=== PATIENT | female | born 1935 | race Caucasian/White ===

== ENCOUNTER → 2018-11-09 | Outpatient (CLI) | payer MEDICARE ==
--- NOTE | 2018-11-09 13:25 | US ---
EXAMINATION TYPE: US venous doppler duplex LE BI DATE OF EXAM: 11/09/2018 1:14 PM COMPARISON: NONE CLINICAL HISTORY: M79.662 Pain left leg, M79.661 Pain right leg. SIDE PERFORMED: Bilateral TECHNIQUE: The lower extremity deep venous system is examined utilizing real time linear array sonog janel with graded compression, doppler sonography and color-flow sonography. VESSELS IMAGED: External Iliac Vein (EIV) Common Femoral Vein Deep Femoral Vein Greater Saphenous Vein * Femoral Vein Popliteal Vein Small Saphenous Vein * Proximal Calf Veins (* superficial vessels) Grayscale, color doppler, spectral doppler imaging performed of the deep veins of the lower extremiti es. There is normal flow, compressibility, vascular waveforms. Right Leg: Negative for DVT Left Leg: Negative for DVT There appears to be two separate fluid collections left pop fossa, the first is adjacent to the pop v essels and measures 2.9 x 0.9 x 1.1, and the second is more anterior and measures 6.5 x 1.7 x 2.8 cm . IMPRESSION: 1. No sonographic evidence of deep venous thrombosis within either lower extremity. 2. 2 fluid collections emanating from the popliteal fossa on the left likely representing popliteal c ysts.
--- NOTE | 2018-11-09 14:18 | XR ---
EXAMINATION TYPE: XR bone survey complete DATE OF EXAM: 11/09/2018 COMPARISON: NONE HISTORY: Lower extremity pain with no known injury. Increased calcium levels Bony calvarium : 2 views of the bony calvarium demonstrate innumerable subcentimeter lucent lesions t hroughout the entirety of the calvarium. There also appears to be widening and sclerosis of the diplo ic space on the lateral calvarial view. Spine: Two views of the cervical, thoracic and lumbar spines are submitted. The spine demonstrates s evere multilevel degenerative disc disease throughout the thoracic and lumbar spine. There is a grade 2 anterolisthesis of L5 on S1. There appears to be osseous demineralization of the spine particularl y of the lower spine. There is also grade 1 anterolisthesis of C6 on C7. PELVIS: Single view of the pelvis demonstrates. No acute fracture or suspicious lytic lesion however there is osseous demineralization of the superior sacrum and retained fecal debris overlying the edgar ac bones and distal sacrum limiting evaluation. UPPER EXTREMITIES: Two views of the upper extremities. Chronic rotator cuff injury is seen as there i s remodeling of the acromion, right greater than left. No acute fracture or suspicious osseous lesion is seen in the upper extremities. LOWER EXTREMITIES: 2 views of the lower extremities. Mild bilateral femoral acetabular arthropathy a nd partially visualized extensive degenerative changes of the knee joints are appreciated. No suspici ous osseous lesion. The single view of the chest demonstrates granulomatous changes at the randy with no focal consolidati on and an enlarged cardiomediastinal silhouette. IMPRESSION: 1. Innumerable lytic lesions within the calvarium with the appearance of the diploic space widening a nd sclerosis. 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 2. Evidence of prior rotator cuff injury with remodeling mineralization of the acromion bilaterally, right greater than left. 3. Partially visualized degenerative changes of the knees appears advanced.
== END | disposition home or self-care (01) ==
LOC: RADUSWWP 09:48
PROVIDERS: ATTEND Internal Medicine Hematology & Oncology
DX: M79.662 Pain in left lower leg (principal); C90.00 Multiple myeloma not having achieved remission; D86.9 Sarcoidosis, unspecified; M88.9 Osteitis deformans of unspecified bone; M17.0 Bilateral primary osteoarthritis of knee; D60.9 Acquired pure red cell aplasia, unspecified; E03.9 Hypothyroidism, unspecified; I10 Essential (primary) hypertension
CPT/HCPCS: 77075; 83883; 86335; 93970

== ENCOUNTER 2018-12-16 08:48 | Emergency (ER) | payer MEDICAID, MEDICARE ==
[2018-12-16 08:51] VITALS: RESP 18
--- NOTE | 2018-12-16 10:33 | XR ---
EXAMINATION TYPE: XR knee complete bilateral , 6 VIEWS DATE OF EXAM ORDERED: 12/16/2018 HISTORY: Pain. COMPARISON: None. FINDINGS: No fracture, dislocation or joint effusion is seen. There is severe tricompartment disease in both knees. There are remodeling change in all 3 compartments. There is aggressive osteopenia (pr esent on the right which may be secondary to disuse. IMPRESSION: 1. NO ACUTE OSSEOUS LESION. 2. SEVERE OSTEOARTHRITIS.
[2018-12-16 10:58] VITALS: BP 162/86; PULSE 87; TEMP 98.3
--- NOTE | 2018-12-16 11:07 | ED ---
Fall HPI - General Chief Complaint: Fall Stated Complaint: Fall Time Seen by Provider: 12/16/18 09:11 Source: patient, EMS Mode of arrival: EMS - History of Present Illness Initial Comments: Patient is a 83-year-old female with history of multiple myeloma presenting to the emergency department after a fall. Patient states that she uses a cane and attempted to walk to the bathroom this morning when she slipped and fell. She can't fully recall the mechanism of the fall. Her came to help her get her off the ground. Patient reports tenderness on bilateral knees. Patient denies any muscle weakness, tingling, numbness. Patient denies any headaches, abdominal pain, or any other extremity pain. Patient denies any chest pain or shortness of breath. - Related Data Home Medications Medication Instructions Recorded Confirmed Levothyroxine Sodium [Synthroid] 100 mcg PO DAILY@0700 12/16/18 12/16/18 Metoprolol Tartrate [Lopressor] 25 mg PO BID@1000,1700 12/16/18 12/16/18 Allergies Allergy/AdvReac Type Severity Reaction Status Date / Time acetaminophen [From Tylenol] Allergy Verified 12/16/18 09:34 benazepril [From Lotensin] Allergy Verified 12/16/18 09:34 hydrochlorothiazide Allergy Verified 12/16/18 09:34 [From Dyazide] magnesium Allergy Verified 12/16/18 09:34 Penicillins Allergy Verified 12/16/18 09:34 triamterene [From Dyazide] Allergy Verified 12/16/18 09:34 Review of Systems ROS Statement: Those systems with pertinent positive or pertinent negative responses have been documented in the HPI. ROS Other: All systems not noted in ROS Statement are negative. Past Medical History Past Medical History: Cancer, Hypertension, Thyroid Disorder History of Any Multi-Drug Resistant Organisms: None Reported Past Surgical History: Appendectomy Past Psychological History: No Psychological Hx Reported Smoking Status: Former smoker Past Alcohol Use History: None Reported Past Drug Use History: None Reported General Exam Limitations: no limitations General appearance: alert, in no apparent distress Head exam: Present: atraumatic, normocephalic, normal inspection Eye exam: Present: normal appearance, PERRL, EOMI. Absent: scleral icterus, conjunctival injection, nystagmus Pupils: Present: normal accommodation ENT exam: Present: normal exam Neck exam: Present: normal inspection, full ROM. Absent: tenderness Respiratory exam: Present: normal lung sounds bilaterally Cardiovascular Exam: Present: systolic murmur Extremities exam: Present: tenderness (Bilateral knee tenderness.), normal capillary refill, joint swelling (Mild joint swelling.), other (+2 dorsalis pedis bilaterally.). Absent: full ROM (Decreased range of motion bilaterally especially with knee flexion.), pedal edema, calf tenderness ( The lateral.) Back exam: Present: normal inspection Neurological exam: Present: alert, oriented X3 Psychiatric exam: Present: normal affect, normal mood Course Vital Signs 12/16/18 08:49 Temperature 98.5 F Pulse Rate 95 Respiratory 18 Rate Blood Pressure 183/70 O2 Sat by Pulse 100 Oximetry Medical Decision Making - Medical Decision Making Patient is a 83-year-old female presents to the emergency department after a fall. X-ray of bilateral knees was obtained and was negative for fractures. X- ray was suggestive of osteopenia and arthritic changes. Patient advised to follow-up with primary care. Patient is to return to emergency department if symptoms worsen. Patient advised to take acetaminophen for pain control. Case discussed with physician. Disposition Clinical Impression: Fall Disposition: HOME SELF-CARE Condition: Stable Instructions (If sedation given, give patient instructions): Fall Prevention for Older Adults (ED) Additional Instructions: Please follow up primary care. Please return to emergency department if symptoms worsen. Take acetaminophen for pain control. Is patient prescribed a controlled substance at d/c from ED?: No Referrals: Danna Corea DO [Primary Care Provider] - 1-2 days Time of Disposition: 11:08
== END 2018-12-16 11:19 | disposition home or self-care (01) ==
LOC: EC 08:48
DX: M25.462 Effusion, left knee (principal); M25.461 Effusion, right knee; I10 Essential (primary) hypertension; E07.9 Disorder of thyroid, unspecified; Z85.79 Personal history of other malignant neoplasms of lymphoid, hematopoietic and related tissues; Z87.891 Personal history of nicotine dependence; Z79.890 Hormone replacement therapy; Z79.899 Other long term (current) drug therapy; Z88.6 Allergy status to analgesic agent; Z88.8 Allergy status to other drugs, medicaments and biological substances; Z88.0 Allergy status to penicillin; W01.0XXA Fall on same level from slipping, tripping and stumbling without subsequent striking against object, initial encounter; Y93.89 Activity, other specified; Y92.009 Unspecified place in unspecified non-institutional (private) residence as the place of occurrence of the external cause
CPT/HCPCS: 99283

== ENCOUNTER 2019-03-23 08:32 | Inpatient (IN) | payer MEDICAID ==
[2019-03-23] MEDS ORDERED: HYDROcodone/APAP 5-325MG 1 EACH TAB PO PRN ×2 (09:19→16:37)
--- NOTE | 2019-03-23 09:27 | ED ---
General Adult HPI - General Chief complaint: Fall Stated complaint: FALL Time Seen by Provider: 03/23/19 08:34 Source: EMS, RN notes reviewed, old records reviewed Mode of arrival: EMS Limitations: altered mental status, physical limitation - History of Present Illness Initial comments: This is an 83-year-old female the ER for evaluation. Patient is unable to give accurate history currently. Patient refusing to cooperate and interview. Patient's presenting here with hospice care as well as at home patient unable to cooperate and interview. Patient's hospice care nurse is here providing helpful history. Patient's becoming increasingly psychotic inappropriate following inability take care of herself not eating not taking medications. Did not notice any significant injury or fever MD Complaint: Psychosis and inability to attend basic needs -: week(s) Improves with: none Worsens with: none Associated Symptoms: confusion, weakness Treatments Prior to Arrival: none - Related Data Home Medications Medication Instructions Recorded Confirmed Levothyroxine Sodium [Synthroid] 100 mcg PO DAILY 12/16/18 03/23/19 Metoprolol Tartrate [Lopressor] 25 mg PO BID 12/16/18 03/23/19 Hydrocodone/Acetaminophen [[place] 1 tab PO Q4H PRN 03/23/19 03/23/19 5-325] Allergies Allergy/AdvReac Type Severity Reaction Status Date / Time acetaminophen [From Tylenol] Allergy Verified 03/23/19 09:22 benazepril [From Lotensin] Allergy Verified 03/23/19 09:22 hydrochlorothiazide Allergy Verified 03/23/19 09:22 [From Dyazide] magnesium Allergy Verified 03/23/19 09:22 Penicillins Allergy Verified 03/23/19 09:22 triamterene [From Dyazide] Allergy Verified 03/23/19 09:22 Review of Systems ROS Statement: Those systems with pertinent positive or pertinent negative responses have been documented in the HPI. ROS Other: All systems not noted in ROS Statement are negative. Past Medical History Past Medical History: Cancer, Hypertension, Thyroid Disorder History of Any Multi-Drug Resistant Organisms: None Reported Past Surgical History: Appendectomy Past Psychological History: No Psychological Hx Reported Smoking Status: Former smoker Past Alcohol Use History: None Reported Past Drug Use History: None Reported General Exam Limitations: no limitations General appearance: alert, in no apparent distress Head exam: Present: atraumatic, normocephalic, normal inspection Eye exam: Present: normal appearance, PERRL, EOMI. Absent: scleral icterus, conjunctival injection, periorbital swelling ENT exam: Present: normal exam, mucous membranes moist Neck exam: Present: normal inspection. Absent: tenderness, meningismus, lymphadenopathy Respiratory exam: Present: normal lung sounds bilaterally. Absent: respiratory distress, wheezes, rales, rhonchi, stridor Cardiovascular Exam: Present: regular rate, normal rhythm, normal heart sounds. Absent: systolic murmur, diastolic murmur, rubs, gallop, clicks GI/Abdominal exam: Present: soft, normal bowel sounds. Absent: distended, tenderness, guarding, rebound, rigid Extremities exam: Present: normal inspection, full ROM, normal capillary refill. Absent: tenderness, pedal edema, joint swelling, calf tenderness Back exam: Present: normal inspection Neurological exam: Present: alert, oriented X3, CN II-XII intact Psychiatric exam: Present: normal affect, normal mood Skin exam: Present: warm, dry, intact, normal color. Absent: rash Course Vital Signs 03/23/19 08:34 Temperature 97.8 F Pulse Rate 90 Respiratory 24 Rate Blood Pressure 158/64 O2 Sat by Pulse 99 Oximetry - Reevaluation(s) Reevaluation #1: 03/23/19 09:21 Medical records reviewed Reevaluation #2: 03/23/19 09:21 spoke with Patient's home hospice nurse who states patient is no longer safe to be hospice at home Medical Decision Making - Medical Decision Making 83 female the ER for evaluation presented today for evaluation regarding and states multiple myeloma multiple medical conditions. Patient is a DO NOT RESUSCITATE be admitted for hospice care and hospice placement as patient is unsafe at home anymore Disposition Clinical Impression: Hospice care Disposition: ADMITTED IP TO THIS HOSP Condition: Fair Is patient prescribed a controlled substance at d/c from ED?: No
[2019-03-23 11:51] VITALS: BMI 21.9
[2019-03-23] MEDS ORDERED: ACETAMINOPHEN TAB 325 MG TAB PO PRN (15:24)
[2019-03-23] MEDS ORDERED: guaiFENesin SYRUP 100MG/5ML 200 MG/10 ML CUP PO PRN (15:24)
[2019-03-23] MEDS ORDERED: METOCLOPRAMIDE 10 MG TAB PO PRN (15:24)
[2019-03-23] MEDS ORDERED: HALOPERIDOL 1 MG TAB PO PRN (15:24)
[2019-03-23] MEDS ORDERED: HALOPERIDOL LACTATE 5 MG/ML 1 ML VIAL IM PRN (15:24)
[2019-03-23] MEDS ORDERED: ACETAMINOPHEN SUPPOSITORY 650 MG SUPP RECTAL PRN (15:24)
--- NOTE | 2019-03-23 18:47 | HP ---
HISTORY AND PHYSICAL CHIEF COMPLAINT: Weakness and change in mental status. HISTORY OF PRESENT ILLNESS: This 83-year-old woman with a past medical history of multiple medical issues including multiple myeloma, hypertension, hypothyroidism, being followed by Dr. Corea in the outpatient setting was apparently on hospice care, but apparently according to her , the patient because confused, agitated and disoriented. The patient also became combative and psychotic. Patient also had multiple falls at least 3 falls and complaining of pain and because of multiple issues and history of falls and weakness, the patient was taken to [facility] and admitted for further evaluation and treatment. There is no history of fever, rigors or chills. No history of headache, loss of consciousness or seizures at this time. PAST MEDICAL HISTORY: History of multiple myeloma, hypertension, hypothyroidism. MEDICATIONS ARE: 1. Metoprolol 25 mg p.o. b.i.d. 2. Synthroid 100 mg p.o. daily. 3. Hydrocodone q.4h p.r.n. ALLERGIES: TYLENOL, DYAZIDE, MAGNESIUM, PENICILLIN. Family history, social history and review of systems could not be taken, because the patient is confused. PHYSICAL EXAM: Patient is confused, disoriented. Pulse 92, blood pressure is 152/69, respiration 18, temperature 97.8, pulse ox 98% on room air. Conjunctivae normal. Oral mucosa moist. Neck is no jugular venous distention. No carotid bruit. No lymph node enlargement. Cardiovascular system: S1, S2 muffled. Respirations: Breath sounds diminished in the bases. A few scattered rhonchi and crackles. ABDOMEN: Soft, nontender. No mass palpable. LEGS: Minimal edema. NERVOUS SYSTEM: Higher functions as mentioned earlier. Otherwise diffusely weak. The patient is not cooperative with full exam. Gait dysfunction present. SKIN: No ulcers, no rashes, no bleeding. JOINTS: No active deforming arthropathy. LYMPHATICS: No lymph nodes palpable in the neck, axillae or groin. LABS: Not available. ASSESSMENT: 1. Change in mental status acute on chronic metabolic encephalopathy post multifactorial. 2. History of multiple falls and pain. 3. Change in mental status, possible psychosis. 4. Multiple myeloma history. 5. Hypertension. 6. Hypothyroidism. 7. Remote history of nicotine dependence. 8. NO CODE, NO CPR AND NO VENT. RECOMMENDATIONS AND DISCUSSION: In this 83-year-old woman who presented with multiple complex medical issues, we will monitor the patient closely, continue the current medications, management and symptomatic treatment. Resume the home medications. Symptomatic treatment. PT/OT evaluation, possible ECF rehab. I would also recommend baseline labs, also. Further recommendations to follow. The patient is also admitted for respite treatment from hospice. SAMMIE / AISHA: [id number] / MTDD
[2019-03-23] MEDS: METOPROLOL TARTRATE 25 MG TAB PO SCH ×2 (20:25→20:27)
[2019-03-23] MEDS: DOCUSATE 100 MG CAP PO SCH ×2 (20:25→20:27)
[2019-03-24] MEDS: MORPHINE SULFATE 2 MG/ML SYRINGE IV PRN ×2 (00:03→00:41)
[2019-03-24] MEDS: LORazepam 0.5 MG TAB PO PRN ×4 (00:42→23:18)
[2019-03-24] MEDS: LEVOTHYROXINE 100 MCG TAB PO SCH (05:18)
[2019-03-24] MEDS: DOCUSATE 100 MG CAP PO SCH ×2 (10:09→22:40)
[2019-03-24] MEDS: METOPROLOL TARTRATE 25 MG TAB PO SCH ×2 (11:05→23:28)
--- NOTE | 2019-03-24 21:24 | PN ---
PROGRESS NOTE DATE OF SERVICE: 03/24/2019 This 83-year-old woman with a past medical history of multiple medical problems including multiple myeloma, was admitted with change in mental status. Patient also confused also. The patient also has severe pain. Duragesic patch has been given. No chest pain. No palpitations. PT/OT is also evaluating the patient. The patient was in hospice at home. EXAM: Pulse is 80, respiration 13. HEENT: Conjunctivae normal. Oral mucosa moist. NECK is no JVD. CARDIOVASCULAR: S1, S2 muffled. RESPIRATIONS: Breath sounds diminished in the bases. A few scattered rhonchi. ABDOMEN: Soft. Nontender. NERVOUS SYSTEM: No focal deficits. LABS: Not available. ASSESSMENT: 1. Change in mental status, acute on chronic metabolic encephalopathy, multifactorial. 2. History of multiple falls and pain. 3. Change in mental status possible psychosis. 4. Multiple myeloma history. 5. Hypertension. 6. Hypothyroidism. 7. Remote history of nicotine dependence. 8. NO CODE, NO CPR. NO VENT. 9. In Hospice. RECOMMENDATIONS AND DISCUSSION: Recommend to continue current medication, current management and symptomatic treatment. Otherwise, possible ECF rehab once the ECF is available. Further recommendations to follow. MMODL / IJN: [id number] /
[2019-03-25] MEDS: ATROPINE OPHTH SOLN 1% 5ML BTL SUBLINGUAL PRN (00:01)
[2019-03-25] MEDS ORDERED: SCOPOLAMINE 1.5MG/72HR PATCH TRANSDERM PRN (02:12)
[2019-03-25] MEDS ORDERED: MORPHINE SULFATE 2 MG/ML SYRINGE IM PRN (02:15)
[2019-03-25] MEDS ORDERED: MORPHINE SULFATE 2 MG/ML SYRINGE IM STA (02:21)
[2019-03-25] MEDS ORDERED: MORPHINE SULFATE 4 MG/ML SYRINGE IM PRN ×2 (02:21→02:24)
[2019-03-25] MEDS ORDERED: IPRATROPIUM-ALBUTEROL 3 ML NEB INHALATION PRN (02:26)
[2019-03-25] MEDS ORDERED: LORazepam 2 MG/ML INJ IM PRN ×2 (02:30)
[2019-03-25] MEDS ORDERED: ATROPINE SULFATE 0.4 MG/ML 1 ML VIAL SQ PRN (04:00)
[2019-03-25] MEDS: LORazepam 2 MG/ML INJ IM PRN ×2 (07:08→16:07)
[2019-03-25] MEDS: LEVOTHYROXINE 100 MCG TAB PO SCH (07:09)
[2019-03-25] MEDS: DOCUSATE 100 MG CAP PO SCH ×2 (10:06→20:52)
[2019-03-25] MEDS: METOPROLOL TARTRATE 25 MG TAB PO SCH ×2 (10:07→20:53)
[2019-03-25] MEDS: SCOPOLAMINE 1.5MG/72HR PATCH TRANSDERM PRN (18:11)
--- NOTE | 2019-03-25 20:25 | PN ---
PROGRESS NOTE DATE OF SERVICE: 03/25/2019 This 83-year-old woman who was admitted with change in mental status for [facility] is also complaining of generalized weakness and tiredness. The patient is confused. Apparently the line assembly utility worker is monitoring the patient. Apparently the is unable to take care of the patient at home. EXAM: Conscious, confused. Pulse 86, blood pressure 150/76, respiration 18, temperature 97.7, pulse ox 97% on 4 L. HEENT is conjunctivae normal. NECK: No jugular venous distention. CARDIOVASCULAR: S1, S2 muffled. RESPIRATORY: Breath sounds diminished in the bases. A few scattered rhonchi and crackles. ABDOMEN soft. Nervous system: Diffusely weak. LABS: Not available. ASSESSMENT: 1. Change in mental status acute on chronic metabolic encephalopathy multifactorial. 2. History of multiple falls and pain. 3. Change in mental status, possible psychosis. 4. Multiple myeloma history. 5. Hypertension. 6. Hypothyroidism. 7. Remote history of nicotine dependence. 8. NO CODE, NO CPR. NO VENT. 9. IN HOSPICE. RECOMMENDATIONS AND DISCUSSION: Recommend to continue current medications, continue to monitor. Symptomatic treatment. Otherwise, I would recommend continue with PT/OT evaluation and consider the possibility of ECF versus hospice home for evaluation. Further recommendations to follow. MMODL / IJN: [id number] /
[2019-03-25 20:35] VITALS: BP 186/69; PULSE 104; TEMP 99
[2019-03-26] MEDS: LORazepam 2 MG/ML INJ IM PRN (01:06)
[2019-03-26] MEDS: SCOPOLAMINE 1.5MG/72HR PATCH TRANSDERM PRN (01:38)
[2019-03-26] MEDS: MORPHINE SULFATE 2 MG/ML SYRINGE IV PRN ×3 (03:01→20:44)
[2019-03-26] MEDS: LEVOTHYROXINE 100 MCG TAB PO SCH (04:10)
[2019-03-26] MEDS: LORazepam 2 MG/ML INJ IV PRN ×3 (05:55→21:16)
[2019-03-26] MEDS: DOCUSATE 100 MG CAP PO SCH ×2 (08:57→19:43)
[2019-03-26] MEDS: METOPROLOL TARTRATE 25 MG TAB PO SCH ×2 (08:57→19:43)
--- NOTE | 2019-03-26 11:53 | PN ---
PROGRESS NOTE DATE OF SERVICE: 03/26/2019 This 83-year-old woman with a past medical history of multiple medical problems admitted with change in mental status metabolic encephalopathy and the patient is on hospice at this time. The family is unable to take care of the patient at home apparently and the litigation services manager is looking at either hospice or ECF. No chest pain or palpitation. PHYSICAL EXAMINATION: On exam, the patient is confused. Pulse is 80, respiration 13. The patient is on 4 L nasal cannula. HEENT: Conjunctivae normal. NECK: No jugular venous distention. CARDIOVASCULAR: S1, S2 muffled. RESPIRATORY: Breath sounds diminished at the bases. A few scattered rhonchi. ABDOMEN: Soft. NERVOUS SYSTEM: No focal deficits. LABS: Labs are not available. ASSESSMENT: 1. Change in mental status, acute on chronic metabolic encephalopathy, multifactorial. 2. History of multiple falls and pain. 3. Change in mental status, possible psychosis. 4. Multiple myeloma history. 5. Hypertension. 6. Hypothyroidism. 7. Remote history of nicotine dependence. 8. NO CODE, NO CPR, NO VENT. 9. In Hospice. RECOMMENDATIONS AND DISCUSSION: Recommend to continue current medications. Continue with comfort measures. Otherwise rest of the recommendations per litigation services manager. Further recommendations to follow. MMODL / IJN: [id number] /
[2019-03-27] MEDS: MORPHINE SULFATE 2 MG/ML SYRINGE IV PRN ×5 (01:15→22:47)
[2019-03-27] MEDS: LEVOTHYROXINE 100 MCG TAB PO SCH (02:02)
[2019-03-27] MEDS: DOCUSATE 100 MG CAP PO SCH ×2 (06:52→21:59)
[2019-03-27] MEDS: METOPROLOL TARTRATE 25 MG TAB PO SCH ×2 (06:52→21:59)
[2019-03-27] MEDS: LORazepam 2 MG/ML INJ IV PRN ×5 (06:59→22:48)
[2019-03-27] MEDS: ATROPINE OPHTH SOLN 1% 5ML BTL SUBLINGUAL PRN ×5 (09:15→23:01)
--- NOTE | 2019-03-27 12:26 | P.PN ---
Subjective 83-year-old with multiple myeloma is under hospice care at this time. Patient is comfortable. Objective - Vital Signs Vital signs: Vital Signs Temp 99.0 F 03/25/19 19:35 Pulse 104 H 03/25/19 19:35 Resp 18 03/27/19 07:10 BP 186/69 03/25/19 19:35 Pulse Ox 100 03/25/19 19:35 Intake & Output 03/26/19 03/27/19 03/27/19 18:59 06:59 18:59 Intake Total 0 Balance 0 Intake: Oral 0 Other: Voiding Method Bedpan Bedpan Incontinent Incontinent Incontinent # Voids 2 - Exam PHYSICAL EXAMINATION: CARDIOVASCULAR: S1 and S2 present. No murmurs, rubs, or gallops. PULMONARY: Chest is clear to auscultation, no wheezing or crackles. SKIN: No rashes. Assessment and Plan Plan: -Multiple myeloma, patient is presently inpatient hospice, continue with comfort measures.
[2019-03-27] MEDS: GLYCOPYRROLATE 0.2 MG/ML 2 ML VIAL IM PRN ×2 (16:19→22:05)
[2019-03-28] MEDS: LORazepam 2 MG/ML INJ IV PRN ×7 (01:39→23:38)
[2019-03-28] MEDS: MORPHINE SULFATE 2 MG/ML SYRINGE IV PRN ×4 (01:40→09:59)
[2019-03-28] MEDS: ATROPINE OPHTH SOLN 1% 5ML BTL SUBLINGUAL PRN ×4 (03:01→22:09)
[2019-03-28] MEDS: GLYCOPYRROLATE 0.2 MG/ML 2 ML VIAL IM PRN ×3 (04:04→22:26)
[2019-03-28] MEDS: DOCUSATE 100 MG CAP PO SCH (06:47)
[2019-03-28] MEDS: LEVOTHYROXINE 100 MCG TAB PO SCH (06:47)
[2019-03-28] MEDS: METOPROLOL TARTRATE 25 MG TAB PO SCH (06:47)
[2019-03-28] MEDS ORDERED: MORPHINE SULFATE (100 MG/2 ML) 100 MG in SODIUM CHLORIDE 0.9% 100 ML IV SCH (11:30)
--- NOTE | 2019-03-28 13:04 | P.PN ---
Subjective 83-year-old with multiple myeloma is under hospice care at this time. Patient is comfortable. 03/28/2019 Patient is being switched IV morphine as a requirement morphine was quite often. Patient is not agitated. Objective - Vital Signs Vital signs: Vital Signs Temp 99.0 F 03/25/19 19:35 Pulse 104 H 03/25/19 19:35 Resp 16 03/28/19 07:23 BP 186/69 03/25/19 19:35 Pulse Ox 100 03/25/19 19:35 Intake & Output 03/27/19 03/28/19 03/28/19 18:59 06:59 18:59 Output Total 1 Balance -1 Output: Stool 1 Other: Voiding Method Incontinent Incontinent Incontinent # Voids 1 2 - Exam PHYSICAL EXAMINATION: CARDIOVASCULAR: S1 and S2 present. No murmurs, rubs, or gallops. PULMONARY: Chest is clear to auscultation, no wheezing or crackles. SKIN: No rashes. Assessment and Plan Plan: -Multiple myeloma, patient is presently inpatient hospice, continue with comfort measures.
[2019-03-28 14:17] VITALS: RESP 15
--- NOTE | 2019-03-29 15:30 | P.DS ---
Providers Date of admission: 03/23/19 09:20 Attending physician: Ava Mccloud Primary care physician: [facility] Course: Patient earlier today. Please refer to nursing documentation for that time of . cause of multiple myeloma Patient Condition at Discharge: Fair Plan - Discharge Summary Discharge Rx Participant: Yes New Discharge Prescriptions: No Action Metoprolol Tartrate [Lopressor] 25 mg PO BID Levothyroxine Sodium [Synthroid] 100 mcg PO DAILY Hydrocodone/Acetaminophen [[place] 5-325] 1 tab PO Q4H PRN PRN Reason: Pain Discharge Medication List Levothyroxine Sodium [Synthroid] 100 mcg PO DAILY 12/16/18 [History] Metoprolol Tartrate [Lopressor] 25 mg PO BID 12/16/18 [History] Hydrocodone/Acetaminophen [[place] 5-325] 1 tab PO Q4H PRN 03/23/19 [History] Follow up Appointment(s)/Referral(s): Danna Corea DO [REFERRING] - 1-2 days Discharge Disposition: - Preliminary Cause of Preliminary Cause of : Multiple myeloma
== END 2019-03-29 02:20 | disposition expired | DRG 951 ==
LOC: EC 08:32 → 4SSUR 09:20
PROVIDERS: ADMIT Hospitalist; ATTEND Hospitalist
DX: Z51.5 Encounter for palliative care (principal); G93.41 Metabolic encephalopathy; C90.00 Multiple myeloma not having achieved remission; E03.9 Hypothyroidism, unspecified; F29 Unspecified psychosis not due to a substance or known physiological condition; I10 Essential (primary) hypertension; Z66 Do not resuscitate; Z79.890 Hormone replacement therapy; Z87.891 Personal history of nicotine dependence; Z91.81 History of falling; Z75.5 Holiday relief care; Z88.6 Allergy status to analgesic agent; Z88.0 Allergy status to penicillin; Z88.8 Allergy status to other drugs, medicaments and biological substances; R45.1 Restlessness and agitation; Z79.899 Other long term (current) drug therapy
CPT/HCPCS: 99284